=== PATIENT | female | born 1995 | race African-American/Black ===

== ENCOUNTER 2018-06-16 21:35 | Inpatient (IN) | payer OTHER ==
[2018-06-16] MEDS ORDERED: DEXTROSE 5%-LACTATED RINGERS 1,000 ML IV SCH (23:15)
[2018-06-16] MEDS ORDERED: AMPICILLIN - 2 GM in SODIUM CHLORIDE 100 ML IVPB ONE (23:30)
[2018-06-16] MEDS ORDERED: AMPICILLIN SODIUM 2 GM VIAL ONE (23:34)
[2018-06-17 00:29] LABS: BASO % 0.4 % (0-2.0); EOS % 0.6 % (0-4.5); HEMOGLOBIN 11.3 GM/dL (10.7-15.3); LYMPH % 18.8 % (8-40); MCH 28.9 pg (25.7-33.7); MCHC 34.1 g/dl (32.0-36.0); MEAN CELL VOLUME 84.7 fl (80-96); MEAN PLT VOLUME 8.1 fl (7.5-11.1); MONO % 6.8 % (3.8-10.2); NEUT % 73.4 % (42.8-82.8); PLATELET COUNT 404 K/MM3 (134-434); RDW 13.8 % (11.6-15.6)
[2018-06-17 00:41] LABS: INR 0.92 (0.83-1.09); PROTHROMBIN TIME (PATIENT) 10.9 SEC (9.7-13.0)
[2018-06-17 00:43] LABS: ACTIVATED PTT 24.8 SECONDS (25.2-36.5)
[2018-06-17 00:48] VITALS: BMI 26.4
[2018-06-17 00:56] LABS: ANION GAP 10 MMOL/L (8-16); BLOOD UREA NITROGEN 8 mg/dL (7-18); CALCIUM 8.5 mg/dL (8.5-10.1); CHLORIDE 108 mmol/L (98-107); CO2 22 mmol/L (21-32); CREATININE 0.7 mg/dL (0.55-1.3); GLUCOSE,RANDOM 109 mg/dL (74-106); SODIUM 140 mmol/L (136-145)
[2018-06-17 01:30] LABS: URINE APPEARANCE SLCLOUDY; URINE BILIRUBIN NEGATIVE (<2.0 mg/dL); URINE COLOR LTYELLOW; URINE GLUCOSE (UA) 1+ (NEGATIVE); URINE KETONE NEGATIVE (NEGATIVE); URINE LEUK ESTERASE 3+ (NEGATIVE); URINE NITRITE NEGATIVE (NEGATIVE); URINE PROTEIN NEGATIVE (NEGATIVE); URINE UROBILINOGEN NEGATIVE mg/dL (0.2-1.0)
[2018-06-17] MEDS ORDERED: ELECTROLYTE-148 SOLN 500 ML IV ONE (01:30)
[2018-06-17] MEDS ORDERED: CITRIC ACID/SODIUM CITRATE 30 ML UNIT-DOSE CUP PO ONE (01:45)
[2018-06-17] MEDS ORDERED: FENTANYL/BUPIVACAINE/NS/PF - PCEA - 50 ML DISP.SYRIN EP ONE ×3 (01:51→09:39)
[2018-06-17 02:09] LABS: COCAINE, UR NEGATIVE ng/ml (CUTOFF=300); METHADONE, UR NEGATIVE ng/ml (CUTOFF=300); OPIATES, URI NEGATIVE ng/ml (CUTOFF=300); PHENCYCLIDINE,URINE NEGATIVE ng/ml (CUTOFF=25); URINE AMPHETAMINES NEGATIVE ng/ml (CUTOFF=500); URINE BARBITURATES NEGATIVE ng/ml (CUTOFF=200); URINE BENZODIAZEPINES NEGATIVE ng/ml (CUTOFF=200)
[2018-06-17 02:23] LABS: EPI CELLS MODERATE /HPF (FEW); URINE BACTERIA RARE /hpf (NONE SEEN); URINE MUCUS RARE
[2018-06-17] MEDS ORDERED: NALOXONE HCL 0.4 MG/ML VIAL IVPUSH PRN (03:04)
[2018-06-17] MEDS ORDERED: FENTANYL/BUPIVACAINE/NS/PF - PCEA - 50 ML DISP.SYRIN EP SCH ×2 (03:15→03:40)
[2018-06-17] MEDS: ELECTROLYTE-148 SOLN 1,000 ML IV SCH ×2 (03:15→05:50)
[2018-06-17] MEDS: AMPICILLIN - 1 GM in SODIUM CHLORIDE 100 ML IVPB SCH ×2 (03:23→07:30)
[2018-06-17] MEDS ORDERED: AMPICILLIN SODIUM 1 GM VIAL ONE ×2 (03:52→07:23)
--- NOTE | 2018-06-17 07:24 | HP ---
Past Medical History - Admission Chief Complaint: Uterine contractions History of Present Illness: 22yo @ 39+wks here with uterine contractions. When initially presented she was 75/3/-3, after ambulating for 1-2 hours, she was re-examined adn noted to be 4-5cm dilated. No VB. No LOF. +FM Received PNC at [facility], but states she never wanted to deliver there and always intended to deliver at [facility] History Source: Patient - Past Medical History Pulmonary: Yes: Asthma ...: 2 ...Para: 1 ...Term: 1 ...: 0 ...Spon : 0 ...Induced : 0 ...Multiple Gestation: 0 ... Weeks Gestation by Dates: 39.5 ...EDC by Sono: 06/19/18 Infectious Disease: Yes: STD's (hx hsv 1 no recent out break) - Past Surgical History Hx Myomectomy: No Hx Transabdominal Cerclage: No - Smoking History Smoking history: Never smoked Have you smoked in the past 12 months: No - Alcohol/Substance Use Hx Alcohol Use: No - Social History Usual Living Arrangement: Yes: Alone History of Recent Travel: No Home Medications - Allergies Allergies/Adverse Reactions: Allergies Allergy/AdvReac Type Severity Reaction Status Date / Time No Known Allergies Allergy Verified 02/09/15 04:11 - Home Medications Home Medications: Ambulatory Orders Iron 150 mg PO BID 02/09/15 Vit/Iron Fumarate/FA [ Tablet] 1 each PO DAILY 02/09/15 Physical Exam - Maternity Vital Signs: Vital Signs Temperature 97.2 F L 06/17/18 07:00 Pulse Rate 70 06/17/18 06:20 Respiratory Rate 20 06/17/18 06:20 Blood Pressure 98/65 06/17/18 06:20 O2 Sat by Pulse Oximetry (%) 100 06/17/18 06:20 - Abdominal Exam/OB Number of Fetuses: Single Presentation: Vertex Contractions: Yes Regularity: Irregular Intensity: Mild Monitor Mode: External Category: I Accelerations: Uniform Decelerations: Variable - Vaginal Exam/OB Dilatation (cm): 4-5 Effacement (%): 75 Amniotic Membrane Status: Intact - Labs Lab Results: CBC, BMP 06/16/18 23:59 12/12/18 23:59 Assessment/Plan 22yo @ 39.5wks here in early labor Admit IVF, Epidural Given Amp for GBS unknown Cat I tracing Anticipate FRANSISCO Ramirez MD
--- NOTE | 2018-06-17 07:25 | PN ---
Progress Note, Labor Vaginal Exam #1 Labor Exam Date: 06/17/18 Labor Exam Time: 07:24 Heart Rate (range): Cat I Dilatation: 5 Effacement (%): 100 Amniotic Membrane Status: Ruptured Presentation: Vertex/Position Station: -3 Remarks: Pt comfortable No progress overnight Will start pitocin augmentation Anticipate Pricila Ramirez MD
[2018-06-17] MEDS ORDERED: OXYTOCIN 30 UNITS in 0.9% NS 30 UNIT/500 ML INFUS.BAG IVPB SCH (07:30)
--- NOTE | 2018-06-17 09:55 | PN ---
Progress Note (short form) - Note Progress Note: 22 yrs , EDC 06/19/18 --39.4/[address] Ramirez on 06/16/18 at 11.15 pm i labor PNC at [facility] clinic , chart not available .L&D at [facility] does not have chart & clinic no response . Pt states her course was uneventful. Intrapartum labor course reviewed. onset LP 06/16/18 -8.30 PM 06/17/18 :- 2.25 AM epidural given 7.15 AM SROM , clear along with bloody show FHR tracing earlier , intermittently cat-2 , variable decels mid, moderate or severe noted UC q3-4 min 9.00AM 5-6 cm, irregularly effaced vx -1 station , ? LOP position 9.25 AM scalp electrode applied left lateral position favorable Selected Entries 06/17/18 09:30 Pulse Rate 70 Respiratory 17 Rate Blood Pressure 111/76 O2 Sat by Pulse 100 Oximetry (%) Laboratory Tests 06/16/18 06/16/18 06/16/18 23:59 23:59 23:59 WBC 9.0 Hgb 11.3 Hct 33.0 Plt Count 404 D PT with INR 10.90 INR 0.92 PTT (Actin FS) 24.8 L Sodium Potassium Chloride Carbon Dioxide BUN Creatinine Random Glucose Urine Protein Opiates Screen Methadone Screen Barbiturate Screen Phencyclidine Screen Ur Amphetamines Screen MDMA (Ecstasy) Screen Benzodiazepines Screen Cocaine Screen U Marijuana (THC) Screen RPR Titer HIV 1&2 Antibody Screen HIV P24 Antigen Blood Type B POSITIVE Antibody Screen Negative 06/16/18 06/16/18 06/16/18 23:59 23:59 23:59 WBC Hgb Hct Plt Count PT with INR INR PTT (Actin FS) Sodium 140 Potassium 4.0 Chloride 108 H Carbon Dioxide 22 BUN 8 Creatinine 0.7 Random Glucose 109 H Urine Protein Opiates Screen Methadone Screen Barbiturate Screen Phencyclidine Screen Ur Amphetamines Screen MDMA (Ecstasy) Screen Benzodiazepines Screen Cocaine Screen U Marijuana (THC) Screen RPR Titer Nonreactive HIV 1&2 Antibody Screen Negative HIV P24 Antigen Negative Blood Type Antibody Screen 06/17/18 06/17/18 01:14 01:14 WBC Hgb Hct Plt Count PT with INR INR PTT (Actin FS) Sodium Potassium Chloride Carbon Dioxide BUN Creatinine Random Glucose Urine Protein Negative Opiates Screen Negative Methadone Screen Negative Barbiturate Screen Negative Phencyclidine Screen Negative Ur Amphetamines Screen Negative MDMA (Ecstasy) Screen Negative Benzodiazepines Screen Negative Cocaine Screen Negative U Marijuana (THC) Screen Negative RPR Titer HIV 1&2 Antibody Screen HIV P24 Antigen Blood Type Antibody Screen 10.15 AM :FHR tracing cat -1 pitocin augmentation started 1 ml/hr 10.31 AM Ant lip , vx +1/+2 station FHR cat-2 , small variable 10. 40 AM fhr 60 bpm for 3 min gradulally fhr came up to 125 bpm Cx fully dilated , statio +2/+3 pt encouraged to push upper cutter out notified
[2018-06-17] MEDS ORDERED: TUBERCULIN PPD 5 TU/0.1ML SYRINGE (IN PATIENT USE ONLY) ID ONE (10:00)
[2018-06-17] MEDS ORDERED: OXYTOCIN 30 UNITS in 0.9% NS 30 UNIT/500 ML INFUS.BAG IVPB ONE (10:11)
[2018-06-17] MEDS ORDERED: OXYTOCIN 20 UNITS in 0.9% NS 20 UNIT/1,000 ML INFUS.BAG IV ONE (10:37)
[2018-06-17] MEDS ORDERED: LIDOCAINE HCL 1% PRESERVATIVE FREE - 30ML VIAL ONE (10:38)
[2018-06-17] MEDS ORDERED: BISACODYL 10 MG SUPP.RECT RC PRN (11:15)
[2018-06-17] MEDS ORDERED: METHYLERGONOVINE MALEATE 0.2 MG/1 ML AMP IM PRN (11:15)
[2018-06-17] MEDS ORDERED: OXYTOCIN 20 UNITS in 0.9% NS 20 UNIT/1,000 ML INFUS.BAG IV SCH (11:15)
[2018-06-17] MEDS ORDERED: BENZOCAINE 28 GM HEMORRHOIDAL OINTMENT TP PRN (11:15)
[2018-06-17] MEDS ORDERED: BENZOCAINE 20% 57 GM BOTTLE TP PRN (11:15)
[2018-06-17] MEDS ORDERED: WITCH HAZEL 50% (TUCKS) 40 PAD/JAR PAD TP PRN (11:15)
[2018-06-17] MEDS ORDERED: oxyCODONE HCL 5 MG TABLET PO PRN (11:15)
--- NOTE | 2018-06-17 11:24 | PN ---
Delivery - Delivery Vaginal Delivery: No Problems, Spontaneous (baby vx presentation , delievered in MAEVE position, immediate nasal & oral suction was done at perineum, cord around neck loose, untangled before the delivery of shoulder. cord around body also was noted . placenta removed copletely with membranes. perineum & vagina was intact) Type of Anesthesia: Epidural EBL (cc): 300 Delivery, Single - Stages of Labor Date 1st Stage Initiatied: 06/16/18 Time 1st Stage Initiated: 20:30 Date 2nd Stage Initiated: 06/17/18 Time 2nd Stage Initiated: 10:31 Date of Delivery: 06/17/18 Time of Delivery: 10:53 Date Placenta Delivered: 06/17/18 Time Placenta Delivered: 11:00 Placenta: Yes: Spontaneous, Uterine Exploration - Condition of Carpet Repairer/Motors Assembler Present: Yes Name: Devante Yepez Gender: Female Weight: 5 lb 10 oz Position: Right, OA (cord around neck & body loose) Total Hours ROM (Hrs/Mins): 3hrs-45 min - 1 Minute Total Score: 9 5 Minutes Total Score: 9 - [place] Feeding Plan Initial Plan: Elected not to breastfeed exclusively throughout hospitalization Remarks - Remarks Remarks: 22 yrs , 39.[address] Ramirez on 06/16/18 . [facility] intrapartum course uneventful except intermittent cat-2 tracing . she received 3 doses of IV Ampicillin due to unknown GBS pt stable
[2018-06-17 11:31] LABS: ARTERIAL BLD GAS O2 SATURATION 11.6 % (90-98.9); ARTERIAL BLOOD GAS BASE EXCESS -4.6 meq/l (-2-2); ARTERIAL BLOOD GAS pH 7.17 (7.35-7.45)
[2018-06-17 11:40] LABS: VENOUS PC02 53.1 mmHg (38-52); VENOUS PH 7.27 (7.32-7.42); VENOUS PO2 28.1 mmHg (28-48)
[2018-06-17] MEDS: FERROUS SO4 325 MG TABLET (FP) PO SCH (16:36)
[2018-06-17] MEDS: ACETAMINOPHEN 325 MG TABLET (FP) PO PRN (16:55)
[2018-06-17] MEDS: IBUPROFEN 600 MG TABLET (FP) PO PRN (16:55)
[2018-06-18 02:15] LABS: HBsAG SCREEN Negative (Negative)
[2018-06-18 06:17] LABS: BASO % 0.6 % (0-2.0); EOS % 0.9 % (0-4.5); HEMATOCRIT 32.7 % (32.4-45.2); HEMOGLOBIN 10.5 GM/dL (10.7-15.3); LYMPH % 20.7 % (8-40); MCH 27.6 pg (25.7-33.7); MCHC 32.2 g/dl (32.0-36.0); MEAN CELL VOLUME 85.9 fl (80-96); MEAN PLT VOLUME 8.1 fl (7.5-11.1); MONO % 6.3 % (3.8-10.2); NEUT % 71.5 % (42.8-82.8); PLATELET COUNT 296 K/MM3 (134-434); RDW 13.9 % (11.6-15.6); WHITE BLOOD COUNT 10.1 K/mm3 (4.0-10.0)
[2018-06-18 07:23] LABS: RUBELLA IgG ANTIBODY < 0.90 index (Immune >0.99)
[2018-06-18] MEDS: FERROUS SO4 325 MG TABLET (FP) PO SCH ×2 (08:07→16:53)
--- NOTE | 2018-06-18 08:13 | PN ---
Progress Note (short form) - Note Progress Note: ppd 1 doing well, no c/o , no excess vaginal bleeding CBC, BMP 06/18/18 05:45 06/16/18 23:59 Last Vital Signs Temp Pulse Resp BP Pulse Ox 97.8 F 72 18 109/74 100 06/18/18 06:00 06/18/18 06:00 06/18/18 06:00 06/18/18 06:00 06/17/18 11:45 abdomen soft, no distension , no cva uterus firm lochia mild no calf tenderness plan ambualte, observation plan for d/c home in am
[2018-06-18] MEDS: PRENATAL VITAMINS W/ FOLIC ACID TABLET (FP) PO SCH (09:28)
[2018-06-18] MEDS: IBUPROFEN 600 MG TABLET (FP) PO PRN (16:52)
[2018-06-18] MEDS: ACETAMINOPHEN 325 MG TABLET (FP) PO PRN (16:53)
[2018-06-18] MEDS ORDERED: SENNOSIDES/DOCUSATE COMBO (SENNA PLUS) TABLET (UD) PO PRN (22:00)
--- NOTE | 2018-06-19 07:02 | DS ---
Physical Exam-CASHIER ASSOCIATE Vital Signs: Vital Signs Temperature 98.6 F 06/18/18 22:00 Pulse Rate 75 06/18/18 22:00 Respiratory Rate 18 06/18/18 22:00 Blood Pressure 118/63 06/18/18 22:00 O2 Sat by Pulse Oximetry (%) 100 06/17/18 11:45 Constitutional: Yes: Well Nourished Eyes: Yes: WNL HENT: Yes: WNL, Normocephalic Neck: Yes: WNL Cardiovascular: Yes: WNL, Regular Rate and Rhythm, S4 Respiratory: Yes: CTA Bilaterally Gastrointestinal: Yes: WNL, Normal Bowel Sounds ...Rectal Exam: Yes: WNL Renal/: Yes: WNL ....Post : Yes: Uterus firm, Uterus non-tender, Slight lochia rubra ( perineum intact) Breast(s): Yes: WNL (not engorged) Musculoskeletal: Yes: WNL Extremities: Yes: WNL. No: Calf Tenderness Edema: Yes Edema: LLE: 1+, RLE: 1+ Integumentary: Yes: Body Piercing, Tattoos Neurological: Yes: WNL ...Motor Strength: WNL Psychiatric: Yes: WNL, Alert, Oriented Labs: CBC, BMP 06/18/18 05:45 06/16/18 23:59 Delivery - Delivery Vaginal Delivery: No Problems, Spontaneous (baby vx presentation , delievered in MAEVE position, immediate nasal & oral suction was done at perineum, cord around neck loose, untangled before the delivery of shoulder. cord around body also was noted . placenta removed copletely with membranes. perineum & vagina was intact) Type of Anesthesia: Epidural Episiotomy/Laceration: None EBL (cc): 300 Delivery, Single - Stages of Labor Date 1st Stage Initiatied: 06/16/18 Time 1st Stage Initiated: 20:30 Date 2nd Stage Initiated: 06/17/18 Time 2nd Stage Initiated: 10:31 Date of Delivery: 06/17/18 Time of Delivery: 10:53 Time Placenta Delivered: 11:00 Placenta: Yes: Spontaneous, Uterine Exploration - Condition of Infant Company Secretary/Windows Security Engineer Present: Yes Name: Devante Yepez Gender: Female Weight: 5 lb 10 oz Position: Right, OA (cord around neck & body loose) Total Hours ROM (Hrs/Mins): 3hrs-45 min - 1 Minute Total Score: 9 5 Minutes Total Score: 9 - Feeding Plan Initial Plan: Elected not to breastfeed exclusively throughout hospitalization Remarks - Remarks Remarks: 22 yrs , [address] Ramirez on 06/16/18 . pt [facility] drop in [facility] intrapartum course uneventful except intermittent cat-2 tracing . she received 3 doses of IV Ampicillin due to unknown GBS pt stable pp course unstable discharge today Discharge Summary Reason For Visit: LABOR Current Active Problems Normal spontaneous vaginal delivery (Acute) with 39 completed weeks gestation (Acute) with care elsewhere (Acute) Condition: Stable - Instructions Diet, Activity, Other Instructions: Post Instructions DIET: Continue good diet high in protein, calcium, and iron rich foods. Drink at least eight (8) glasses of water daily in addition to other fluids. ___ Regular diet MEDICATIONS: Continue vitamins and iron as previously directed. Motrin and Tylenol may be taken for minor discomfort. ACTIVITY: Mild to moderate exercise may be started in two (2) weeks. Take frequent rest periods. Resume normal activity after six (6) week check up. WOUND CARE OF OPERATIVE SITE: Continue use of perineal bottle until vaginal discharge stops. Keep area clean. Shower daily. Keep abdominal wound dry. Report any drainage or redness to physician. Tub baths, tampons and douches are not permitted for [address] Breast feeding & or Bottle feeding BREAST CARE: (For those that are not breast feeding): If engorgement occurs: Wear tight fitting bra. Take Tylenol or Motrin for pain. Apply cold packs (ice in bags to each breast ) FAMILY PLANNING: There are many control alternatives to pursue and they should be discussed at your first office visit. You may resume sexual activity after your six (6) week check up. (Remember, breast feeding is not a contraceptive) NEXT PHYSICIAN APPOINTMENT: Be certain to call for a six (6) week appointment, unless otherwise directed. Call Clinic or got to Emergency Dept if you have any of the following: Heavy vaginal bleeding Painful urination Leg pain Unusual odor noted to vaginal bleeding High fever Red streaking noted on breast Referrals: Hoa Shah MD [Staff Physician] - Disposition: HOME - Home Medications Comprehensive Discharge Medication List: Ambulatory Orders Iron 325 mg PO DAILY 02/09/15 Acetaminophen [Tylenol .Regular Strength -] 650 mg PO Q3H PRN tablet 06/18/18 Ferrous Sulfate [Feosol] 325 mg PO DAILY #30 tab 06/18/18 Ibuprofen [Motrin -] 200 mg PO Q4H PRN tablet 06/18/18 Vitamins (Sjr) - 1 tab PO DAILY #30 tablet 06/18/18
[2018-06-19] MEDS: ACETAMINOPHEN 325 MG TABLET (FP) PO PRN (07:29)
[2018-06-19] MEDS: FERROUS SO4 325 MG TABLET (FP) PO SCH (07:29)
[2018-06-19] MEDS: IBUPROFEN 600 MG TABLET (FP) PO PRN (07:31)
[2018-06-19] MEDS: PRENATAL VITAMINS W/ FOLIC ACID TABLET (FP) PO SCH (10:56)
[2018-06-19 11:43] VITALS: BP 112/68; PULSE 74; TEMP 98.3
== END 2018-06-19 14:39 | disposition home or self-care (01) | DRG 560 ==
LOC: JDEL 21:35 → JLDR 23:15 → J3W 06-17 14:20
PROVIDERS: ADMIT Obstetrics & Gynecology; ATTEND Obstetrics & Gynecology
PROC: 10E0XZZ Delivery of Products of Conception, External Approach (ICD-10-PCS; principal; 2018-06-17)
DX: O69.81X0 Labor and delivery complicated by cord around neck, without compression, not applicable or unspecified (principal); Z3A.39 39 weeks gestation of pregnancy; Z37.0 Single live birth
CPT/HCPCS: 36415; 36600; 59409; 80048; 80307; 81003; 81015; 82803; 85025; 85610; 85730; 86593; 86762; 86850; 86900; 86901; 87340; 87389

== ENCOUNTER 2020-03-04 11:48 | Emergency (ER) | payer OTHER ==
[2020-03-04 11:53] VITALS: TEMP 97; BMI 25.4
[2020-03-04 13:05] VITALS: BP 120/83; PULSE 76
[2020-03-04] MEDS ORDERED: FAMOTIDINE 20 MG/50 ML IVPB 20 MG/50 ML MG IVPB ONE ×2 (13:18→13:25)
[2020-03-04] MEDS ORDERED: ONDANSETRON 4 MG/2 ML VIAL IVPUSH ONE (13:18)
[2020-03-04] MEDS ORDERED: ACETAMINOPHEN 1000 MG/100 ML VIAL (NON FORMULARY) IVPB ONE (13:19)
[2020-03-04] MEDS ORDERED: SODIUM CHLORIDE 1,000 ML IV STA (13:23)
--- NOTE | 2020-03-04 13:23 | PDOC ---
History of Present Illness - General Chief Complaint: Pain Stated Complaint: ABD. PAIN Time Seen by Provider: 03/04/20 12:30 - History of Present Illness Initial Comments: HPI 24 yo F with no significant PMH presenting with periumbilical abdominal pain since 4 AM. Pt reports the pain started suddenly and awoke her from sleep. Pain initially 10/10, now 8/10; with radiation towards chest "but not reaching the chest." Pain is intermittent occurring about every 5 minutes lasting for about 15-30 seconds; alternates between sharp and cramping in quality. Worse with lying down. Improved with sitting and standing. Pt reports pain was briefly alleviated by a warm bath; also tried peptobismol with no improvement. Pain has been associated with diarrhea x 6 episodes (watery, non-bloody), nausea, nb nb emesis x 2 episodes (light pink/clear), tenesmus, and dizziness upon standing. Denies recent fevers, chills, constipation, urinary changes, chest pain, shortness of breath, weakness, sore threat, myalgias, or headache. Pt hasn't been able to tolerate PO since pain started. Of note, pt reports having Anand lewis last night at 12 AM/1AM. Pt also reports no current sick contacts but does reports attending a democrat with about 20 people two weeks ago. PMHX: as in HPI PSHX: as in HPI ObGyn: ; both vaginal deliveries without complications; no periods for last year d/t depo-provera shot for control Denies hx of any recruiter manager abnormalities Meds: no daily medications; receives depo-provera shot for control Allergies: denies Social Hx Tob: denies Etoh: socially Rec drugs: denies Sexual Hx - sexually active with father of her children; intermittently use protection; no history of STIs PCP: Dr. Neymar BUCKLEY GENERAL/CONSTITUTIONAL: No fever or chills. No weakness. + dizziness upon standing HEAD, EYES, EARS, NOSE AND THROAT: No change in vision. No ear pain or discharge. No sore throat. CARDIOVASCULAR: No chest pain or shortness of breath RESPIRATORY: No cough, wheezing, or hemoptysis. GASTROINTESTINAL: No constipation. + nausea/vomiting/diarrhea/tenesmus GENITOURINARY: No dysuria, frequency, or change in urination. MUSCULOSKELETAL: No joint or muscle swelling or pain. No neck or back pain. SKIN: No rash NEUROLOGIC: No headache, vertigo, loss of consciousness, or change in strength/sensation. ENDOCRINE: No increased thirst. No abnormal weight change HEMATOLOGIC/LYMPHATIC: No anemia, easy bleeding, or history of blood clots. ALLERGIC/IMMUNOLOGIC: No hives or skin allergy. PE VS - orthostatic vitals positive (126/75 sitting; 105/71 standing) GENERAL: Awake, alert, and fully oriented, in no acute distress; in mild discomfort HEAD: No signs of trauma, normocephalic, atraumatic EYES: PERRLA, EOMI, sclera anicteric, conjunctiva clear ENT: Auricles normal inspection, hearing grossly normal, nares patent, oropharynx clear without exudates. Dry mucous membranes. NECK: Normal ROM, supple, no lymphadenopathy LUNGS: No distress, speaks full sentences, clear to auscultation bilaterally HEART: Regular rate and rhythm, normal S1 and S2, no murmurs, rubs or gallops, peripheral pulses normal and equal bilaterally. ABDOMEN: Soft, non-distended, minimal to mild tenderness in periumbilical area; normoactive bowel sounds. No guarding, no rebound. No masses. EXTREMITIES : Normal inspection, Normal range of motion, no edema. No clubbing or cyanosis. NEUROLOGICAL: Normal speech, normal gait, no focal sensorimotor deficits SKIN: Warm, Dry, normal turgor, no rashes or lesions noted 03/04/20 13:29 Past History - Medical History Allergies/Adverse Reactions: Allergies Allergy/AdvReac Type Severity Reaction Status Date / Time No Known Allergies Allergy Verified 03/04/20 11:52 Home Medications: Ambulatory Orders Iron 325 mg PO DAILY 02/09/15 Acetaminophen [Tylenol .Regular Strength -] 650 mg PO Q3H PRN tablet 06/18/18 Ferrous Sulfate [Feosol] 325 mg PO DAILY #30 tab 06/18/18 Ibuprofen [Motrin -] 200 mg PO Q4H PRN tablet 06/18/18 Vitamins (Sjr) - 1 tab PO DAILY #30 tablet 06/18/18 Ondansetron [Zofran -] 4 mg PO BID PRN #10 tablet 03/04/20 Asthma: No Cancer: No Cardiac Disorders: No COPD: No Diabetes: No HTN: No Seizures: No Thyroid Disease: No - Reproductive History Is Patient Now?: (patient is unsure) Therapeutic (s) & number: No Tubal Ligation: No - Psycho-Social/Smoking History Smoking History: Never smoked Have you smoked in the past 12 months: No Information on smoking cessation initiated: No - Substance Abuse Hx (Audit-C & DAST Scrn) How often the patient has a drink containing alcohol: Never Score: In Men: 4 or > Positive; In Women: 3 or > Positive: 0 Screen Result (Pos requires Nsg. Audit-10AR): Negative *Physical Exam - Vital Signs Last Vital Signs Temp Pulse Resp BP Pulse Ox 97 F L 76 20 120/83 100 03/04/20 11:50 03/04/20 11:52 03/04/20 11:52 03/04/20 11:52 03/04/20 11:52 ED Treatment Course - LABORATORY CBC & Chemistry Diagram: 03/04/20 13:45 03/04/20 13:45 Medical Decision Making - Medical Decision Making MDM 24 yo F with no significant PMH presenting with intermittent periumbilical abdominal pain with associated diarrhea, nausea, and vomiting. DDX including but not limited to: likely gastritis vs gastroenteritis; will r/o pancreatitis, metabolic abnormalities, and COVID W/U: -CBC, CMP, lipase, serum test TX: -IV tylenol, zofran, and pepcid -1 L NS bolus -Will continue to monitor and reassess after labs, medications administered 03/04/20 14:12 Labs only with WBC 11.6 Pt clinically improved. Will plan to discharge. 03/04/20 14:49 Patient stable for discharge. Informed of all lab and imaging results. Given follow up instructions and strict return precautions. Patient expressed understanding and agree to plan. 03/04/20 17:08 Discharge - Discharge Information Problems reviewed: Yes Clinical Impression/Diagnosis: Periumbilical abdominal pain, Vomiting, Diarrhea Condition: Improved Disposition: HOME - Additional Discharge Information Prescriptions: Ondansetron [Zofran -] 4 mg PO BID PRN #10 tablet PRN Reason: Nausea And/Or Vomiting - Follow up/Referral - Patient Discharge Instructions Patient Printed Discharge Instructions: DI for Viral Gastroenteritis -- Adult, DI for Gastritis Additional Instructions: You were seen in the ED and evaluated for abdominal pain with nausea, vomiting, and diarrhea. You were given Tylenol (for pain), Pepcid (for possible gastrit is), Zofran (for nausea), and IV fluids. Your symptoms have subsided since these medications were given. Your results of your labs included a mild elevation in you white blood cells. There does not appear to be an acute need for immediate hospitalization. You are advised to follow up with your Primary Care Physician within 1 week. You were given a prescription for Zofran odt for nausea. Please return to the ED if you have significant worsening of abdominal pain, vomiting, or diarrhea OR the development of persistent fevers and inability to tolerate any food/liquids by mouth. - Post Discharge Activity
[2020-03-04] MEDS ORDERED: ACETAMINOPHEN INJECTION 100 ML IVPB ONE (13:25)
--- NOTE | 2020-03-04 13:58 | PDOC ---
Documentation entered by Vinayak Donahue SCRIBE, acting as scribe for Christ Rodriguez MD. Christ Rodriguez MD: This documentation has been prepared by the rheaibeGodfrey Angel, SCRIBE, under my direction and personally reviewed by me in its entirety. I confirm that the documentation accurately reflects all work, treatment, procedures, and medical decision making performed by me. Attending Attestation - Resident Resident Name: KrystenJasiel - ED Attending Attestation I have performed the following: I have examined & evaluated the patient, The case was reviewed & discussed with the resident, I agree w/resident's findings & plan, Exceptions are as noted - HPI HPI: 03/04/20 13:55 24y F no pmhx presents with complaint of intermitent epigastric/periumbilical discomfort that is sharp innature - started approximately 4am - pt was at a green party last night, had pizza approx 1am, got home around 3 feeling fine, around 4am, she started having abd discomfort, went to sleep and woke up around 8 with sypmptoms again. pt endorses 4-5 episodes of non bloody/watery stool as well as a few episodes of nbnb vomiting. pt denies any fever/chills, cp, sob, bpr, melena, cough, headache, dizzines,s palpitations, no prior abd surgeries. occasional etoh (last use 2 weeks ago) denies any smoking, recreational drug use - Physicial Exam PE: 03/04/20 13:57 GENERAL: The patient is awake, alert, and fully oriented, Nontoxic - in no acute distress. HEAD: Normocephalic, atraumatic. EYES: extraocular movements intact, sclera anicteric, conjunctiva clear. ENT: Normal voice, Moist mucous membranes. NECK: Normal range of motion, supple LUNGS: Breath sounds equal, clear to auscultation bilaterally. No wheezes, no rhonchi, no rales. HEART: Regular rate and rhythm, normal S1 and S2 without murmur, rub or gallop. ABDOMEN: Soft, nontender, No guarding, no rebound. No CVA tenderness EXTREMITIES: Normal range of motion, no edema. NEUROLOGICAL: No facial assymetry, Normal speech, PSYCH: Normal mood, normal affect. SKIN: Warm, Dry, normal turgor, - Medical Decision Making 03/04/20 13:57 Suspect likely gastritis versus gastroenteritis Will treat supportively, fluids, Pepcid, Zofran Will obtain blood work to rule out anemia, metabolic derangements, pancreatitis 03/04/20 15:15 labs reviewd unremarkable pt feeling improved will dc with supportive care at home return precutions wre discussed Discharge - Discharge Information Problems reviewed: Yes Clinical Impression/Diagnosis: Periumbilical abdominal pain Vomiting Qualifiers: Vomiting type: unspecified Vomiting Intractability: non-intractable Nausea presence: with nausea Qualified Code(s): R11.2 - Nausea with vomiting, unspecified Diarrhea Qualifiers: Diarrhea type: presumed infectious Qualified Code(s): R19.7 - Diarrhea, unspecified Condition: Improved Disposition: HOME - Admission No - Additional Discharge Information Prescriptions: Ondansetron [Zofran -] 4 mg PO BID PRN #10 tablet PRN Reason: Nausea And/Or Vomiting - Follow up/Referral - Patient Discharge Instructions Patient Printed Discharge Instructions: DI for Viral Gastroenteritis -- Adult, DI for Gastritis Additional Instructions: You were seen in the ED and evaluated for abdominal pain with nausea, vomiting, and diarrhea. You were given Tylenol (for pain), Pepcid (for possible gastritis), Zofran (for nausea), and IV fluids. Your symptoms have subsided since these medications were given. Your results of your labs included a mild elevation in you white blood cells. There does not appear to be an acute need for immediate hospitalization. You are advised to follow up with your Primary Care Physician within 1 week. You were given a prescription for Zofran odt for nausea. Please return to the ED if you have significant worsening of abdominal pain, vomiting, or diarrhea OR the development of persistent fevers and inability to tolerate any food/liquids by mouth. - Post Discharge Activity
[2020-03-04 14:18] LABS: HEMATOCRIT 42.9 % (32.4-45.2); HEMOGLOBIN 14.3 GM/dL (10.7-15.3); MCH 30.7 pg (25.7-33.7); MCHC 33.3 g/dl (32.0-36.0); MEAN CELL VOLUME 92.2 fl (80-96); MEAN PLT VOLUME 8.3 fl (7.5-11.1); PLATELET COUNT 416 K/MM3 (134-434); RBC 4.65 M/mm3 (3.60-5.2); RDW 12.6 % (11.6-15.6); WHITE BLOOD COUNT 11.6 K/mm3 (4.0-10.0)
[2020-03-04 14:37] LABS: ALBUMIN 3.9 g/dl (3.4-5.0); BILIRUBIN,TOTAL 0.6 mg/dL (0.2-1); CALCIUM 9.7 mg/dL (8.5-10.1); CREATININE 0.8 mg/dL (0.55-1.3); POTASSIUM 4.8 mmol/L (3.5-5.1); TOT PROT 7.6 g/dl (6.4-8.2)
== END 2020-03-04 15:39 | disposition home or self-care (01) ==
LOC: JER 11:48
PROC: 3E0333Z Introduction of Anti-inflammatory into Peripheral Vein, Percutaneous Approach (ICD-10-PCS; principal; 2020-03-04)
PROC: 3E033GC Introduction of Other Therapeutic Substance into Peripheral Vein, Percutaneous Approach (ICD-10-PCS; 2020-03-04)
PROC: 3E0337Z Introduction of Electrolytic and Water Balance Substance into Peripheral Vein, Percutaneous Approach (ICD-10-PCS; 2020-03-04)
DX: R10.33 Periumbilical pain (principal); R19.7 Diarrhea, unspecified; R11.10 Vomiting, unspecified
CPT/HCPCS: 36415; 80053; 83690; 84703; 85027; 96361; 96374; 96375; 99284-25; J0131; U0003

== ENCOUNTER 2020-06-05 00:39 | Emergency (ER) | payer OTHER ==
[2020-06-05 00:56] VITALS: BP 107/65; PULSE 94; TEMP 99.1; BMI 26.4
[2020-06-05] MEDS ORDERED: IBUPROFEN 600 MG TABLET (FP) PO ONE ×3 (01:15→02:30)
[2020-06-05] MEDS ORDERED: IBUPROFEN 400 MG TABLET (FP) PO ONE ×2 (02:14→02:30)
[2020-06-05] MEDS ORDERED: IBUPROFEN 100 MG/5 ML UNIT DOSE CUPS PO ONE ×2 (02:30)
== END 2020-06-05 02:44 | disposition home or self-care (01) ==
LOC: JER 00:39
DX: S92.334A Nondisplaced fracture of third metatarsal bone, right foot, initial encounter for closed fracture (principal)
CPT/HCPCS: 73610-TC-RT-FY; 73630-TC-RT-FY; 99284-25

== ENCOUNTER 2020-09-30 14:16 | Emergency (ER) | payer OTHER ==
[2020-09-30 14:34] VITALS: BP 111/65; PULSE 93; TEMP 98; BMI 30.2
[2020-09-30] MEDS ORDERED: SODIUM CHLORIDE 0.9% 500 ML INFUS.BAG IV ONE (15:02)
[2020-09-30 16:25] LABS: BASO % 0.7 % (0-2.0); EOS % 0.8 % (0-4.5); HEMATOCRIT 39.6 % (32.4-45.2); HEMOGLOBIN 13.3 GM/dL (10.7-15.3); LYMPH % 33.8 % (8-40); MCH 31.6 pg (25.7-33.7); MCHC 33.7 g/dl (32.0-36.0); MEAN CELL VOLUME 93.7 fl (80-96); MEAN PLT VOLUME 7.8 fl (7.5-11.1); MONO % 10.1 % (3.8-10.2); NEUT % 54.6 % (42.8-82.8); PLATELET COUNT 414 K/MM3 (134-434); RBC 4.23 M/mm3 (3.60-5.2); RDW 12.5 % (11.6-15.6); WHITE BLOOD COUNT 6.4 K/mm3 (4.0-10.0)
[2020-09-30 16:33] LABS: EPI CELLS >36 /uL (0-25.1); HYALINE CASTS 1 /uL (0-3.1); PH,URINE 6.5 (5.0-8.0); URINE APPEARANCE CLOUDY; URINE BACTERIA 601 /uL (0-1359); URINE BILIRUBIN NEGATIVE (NEGATIVE); URINE COLOR YELLOW; URINE GLUCOSE (UA) NEGATIVE (NEGATIVE); URINE KETONE NEGATIVE (NEGATIVE); URINE LEUK ESTERASE 2+ (NEGATIVE); URINE NITRITE NEGATIVE (NEGATIVE); URINE PROTEIN NEGATIVE (NEGATIVE); URINE RBC 5 /uL (0-23.9); URINE UROBILINOGEN 0.2 mg/dL (0.2-1.0); URINE WBC 44 /uL (0-25.8)
[2020-09-30 16:44] LABS: POTASSIUM 4.1 mmol/L (3.5-5.1)
[2020-09-30 16:46] LABS: ALBUMIN 3.5 g/dl (3.4-5.0); CALCIUM 9.3 mg/dL (8.5-10.1)
[2020-09-30 16:47] LABS: BLOOD UREA NITROGEN 6.4 mg/dL (7-18)
[2020-09-30 16:50] LABS: CREATININE 0.7 mg/dL (0.55-1.3)
[2020-09-30 16:51] LABS: BILIRUBIN,TOTAL 0.2 mg/dL (0.2-1)
== END 2020-09-30 20:28 | disposition home or self-care (01) ==
LOC: JER 14:16
DX: Z3A.01 Less than 8 weeks gestation of pregnancy (principal)
CPT/HCPCS: 36415; 76817-TC; 80053; 81003; 84702; 85025; 85379; 87086; 99284-25

== ENCOUNTER 2021-04-13 15:58 | Emergency (ER) | payer OTHER ==
[2021-04-13 16:07] VITALS: TEMP 97.9; BMI 26.4
[2021-04-13] MEDS ORDERED: SODIUM CHLORIDE 1,000 ML IV STA (16:56)
[2021-04-13 17:16] LABS: HCG,QUALITATIVE URINE Positive
[2021-04-13 17:17] LABS: RBC 4.46 M/mm3 (3.60-5.2); WHITE BLOOD COUNT 5.9 K/mm3 (4.0-10.0)
[2021-04-13 17:18] LABS: BASO % 1.2 % (0-2.0); EOS % 1.6 % (0-4.5); HEMATOCRIT 40.7 % (32.4-45.2); HEMOGLOBIN 13.7 GM/dL (10.7-15.3); LYMPH % 38.5 % (8-40); MCH 30.8 pg (25.7-33.7); MCHC 33.7 g/dl (32.0-36.0); MEAN CELL VOLUME 91.3 fl (80-96); MEAN PLT VOLUME 7.9 fl (7.5-11.1); MONO % 9.9 % (3.8-10.2); NEUT % 48.8 % (42.8-82.8); PLATELET COUNT 435 10^3/uL (134-434); RDW 12.7 % (11.6-15.6)
[2021-04-13 17:20] LABS: EPI CELLS 13 /uL (0-25.1); HYALINE CASTS 0 /uL (0-3.1); URINE APPEARANCE CLEAR; URINE BACTERIA 106 /uL (0-1359); URINE BILIRUBIN NEGATIVE (NEGATIVE); URINE COLOR YELLOW; URINE GLUCOSE (UA) NEGATIVE (NEGATIVE); URINE KETONE NEGATIVE (NEGATIVE); URINE LEUK ESTERASE TRACE (NEGATIVE); URINE NITRITE NEGATIVE (NEGATIVE); URINE PROTEIN NEGATIVE (NEGATIVE); URINE RBC 2 /uL (0-23.9); URINE WBC 14 /uL (0-25.8)
[2021-04-13 17:30] LABS: ALBUMIN 3.6 g/dl (3.4-5.0)
[2021-04-13 17:31] LABS: BLOOD UREA NITROGEN 9.7 mg/dL (7-18)
[2021-04-13 17:34] LABS: CREATININE 0.7 mg/dL (0.55-1.3)
[2021-04-13 17:35] LABS: BILIRUBIN,TOTAL 0.3 mg/dL (0.2-1); TOT PROT 7.5 g/dl (6.4-8.2)
[2021-04-13 20:02] VITALS: BP 109/76; PULSE 80
== END 2021-04-13 20:02 | disposition home or self-care (01) ==
LOC: JER 15:58
DX: O26.891 Other specified pregnancy related conditions, first trimester (principal); R10.2 Pelvic and perineal pain; Z32.01 Encounter for pregnancy test, result positive; Z3A.01 Less than 8 weeks gestation of pregnancy
CPT/HCPCS: 36415; 76817-TC; 76856-TC; 80053; 81003; 83690; 84702; 84703; 85025; 87086; 87491; 87591; 99285-25

== ENCOUNTER 2021-05-03 23:22 | Emergency (ER) | payer OTHER ==
[2021-05-03 23:28] VITALS: BP 118/78; PULSE 74; TEMP 97; BMI 24.5
[2021-05-04] MEDS ORDERED: LACTATED RINGERS SOLUTION 1000 ML INFUS.BAG IV ONE (00:38)
[2021-05-04] MEDS ORDERED: ONDANSETRON 4 MG/2 ML VIAL IVPUSH ONE (00:38)
[2021-05-04] MEDS ORDERED: ACETAMINOPHEN 1000 MG/100 ML VIAL IVPB ONE (00:38)
[2021-05-04] MEDS ORDERED: FAMOTIDINE 20 MG/50 ML IVPB 20 MG/50 ML MG IVPB ONE ×2 (00:40→01:22)
[2021-05-04] MEDS ORDERED: ACETAMINOPHEN INJECTION 100 ML IVPB ONE (01:22)
[2021-05-04] MEDS ORDERED: ONDANSETRON 4 MG/2 ML VIAL ONE (01:22)
[2021-05-04 02:00] LABS: BASO % 1.5 % (0-2.0); EOS % 0.8 % (0-4.5); HEMATOCRIT 39.7 % (32.4-45.2); HEMOGLOBIN 13.9 GM/dL (10.7-15.3); LYMPH % 34.2 % (8-40); MCH 31.1 pg (25.7-33.7); MCHC 34.9 g/dl (32.0-36.0); MEAN CELL VOLUME 89.3 fl (80-96); MEAN PLT VOLUME 6.9 fl (7.5-11.1); NEUT % 56.5 % (42.8-82.8); PLATELET COUNT 456 10^3/uL (134-434); RBC 4.45 M/mm3 (3.60-5.2); RDW 12.6 % (11.6-15.6); WHITE BLOOD COUNT 10.4 K/mm3 (4.0-10.0)
[2021-05-04 02:05] LABS: EPI CELLS 16 /uL (0-25.1); HYALINE CASTS 0 /uL (0-3.1); PH,URINE 5.5 (5.0-8.0); URINE APPEARANCE CLEAR; URINE BACTERIA >9,000 /uL (0-1359); URINE BILIRUBIN NEGATIVE (NEGATIVE); URINE COLOR YELLOW; URINE GLUCOSE (UA) NEGATIVE (NEGATIVE); URINE KETONE NEGATIVE (NEGATIVE); URINE LEUK ESTERASE 1+ (NEGATIVE); URINE NITRITE NEGATIVE (NEGATIVE); URINE PROTEIN NEGATIVE (NEGATIVE); URINE RBC 3 /uL (0-23.9); URINE UROBILINOGEN 0.2 mg/dL (0.2-1.0); URINE WBC 30 /uL (0-25.8)
[2021-05-04 02:21] LABS: ALBUMIN 3.5 g/dl (3.4-5.0); CALCIUM 9.5 mg/dL (8.5-10.1)
[2021-05-04 02:22] LABS: BLOOD UREA NITROGEN 8.8 mg/dL (7-18)
[2021-05-04 02:25] LABS: CREATININE 0.6 mg/dL (0.55-1.3)
[2021-05-04 02:26] LABS: BILIRUBIN,TOTAL 0.2 mg/dL (0.2-1); TOT PROT 7.5 g/dl (6.4-8.2)
== END 2021-05-04 02:49 | disposition home or self-care (01) ==
LOC: JER 23:22
PROC: 3E033NZ Introduction of Analgesics, Hypnotics, Sedatives into Peripheral Vein, Percutaneous Approach (ICD-10-PCS; principal; 2021-05-04)
PROC: 3E033GC Introduction of Other Therapeutic Substance into Peripheral Vein, Percutaneous Approach (ICD-10-PCS; 2021-05-04)
PROC: 3E033GC Introduction of Other Therapeutic Substance into Peripheral Vein, Percutaneous Approach (ICD-10-PCS; 2021-05-04)
DX: N39.0 Urinary tract infection, site not specified (principal)
CPT/HCPCS: 36415; 76705-TC; 80053; 81003; 83690; 85025; 87086; 87186; 99285-25; C9803; J0131; U0003; U0005

== ENCOUNTER 2021-09-16 16:44 | Emergency (ER) | payer OTHER ==
[2021-09-16 16:48] VITALS: BP 111/72; PULSE 84; TEMP 97.8; BMI 26.4
[2021-09-16] MEDS ORDERED: DIPHTH,PERTUSS(ACELL),TET 0.5 ML DISP.SYRIN IM ONE ×2 (19:00→19:02)
== END 2021-09-16 19:27 | disposition home or self-care (01) ==
LOC: JERFT 16:44
PROC: 3E0234Z Introduction of Serum, Toxoid and Vaccine into Muscle, Percutaneous Approach (ICD-10-PCS; principal; 2021-09-16)
DX: S93.492A Sprain of other ligament of left ankle, initial encounter (principal); W19.XXXA Unspecified fall, initial encounter
CPT/HCPCS: 73610-TC-LT-FY; 73630-TC-LT; 90715; 99283-25

== ENCOUNTER 2022-08-15 00:07 | Emergency (ER) | payer OTHER ==
[2022-08-15 00:16] VITALS: BP 126/70; PULSE 62; RESP 16; TEMP 97.6; BMI 27.3
== END 2022-08-15 02:10 | disposition home or self-care (01) ==
LOC: JER 00:07
DX: N64.89 Other specified disorders of breast (principal)
CPT/HCPCS: 99282-25

== ENCOUNTER 2025-05-02 22:13 | Emergency (ER) | payer OTHER ==
[2025-05-02 22:21] VITALS: BP 115/75; PULSE 72; RESP 18; TEMP 97.3; BMI 25.4
[2025-05-02] MEDS ORDERED: ACETAMINOPHEN 500 MG TABLET (FP) ONE (23:00)
[2025-05-02] MEDS: ACETAMINOPHEN 500 MG TABLET (FP) PO ONE (23:03)
[2025-05-02 23:20] LABS: ABSOLUTE IMMATURE GRANULOCYTES 0.02 x10^3/uL (0.0-0.031); BASOPHILS # 0.07 x10^3/uL (0.01-0.08); EOSINOPHIL % 1.3 % (0.7-5.8); EOSINOPHILS # 0.11 x10^3/uL (0.04-0.36); MCHC 33.1 g/dl (32.2-35.5); MEAN CELL VOLUME 93.8 fl (79.4-94.8); MEAN PLT VOLUME 8.9 fl (9.4-12.3); MONOCYTE # 0.55 x10^3/uL (0.24-0.86); MONOCYTE % 6.4 % (4.7-12.5); RDW 11.5 % (12.1-16.5)
[2025-05-02 23:45] LABS: URINE APPEARANCE CLEAR; URINE BILIRUBIN NEGATIVE (NEGATIVE); URINE COLOR YELLOW; URINE GLUCOSE (UA) NEGATIVE (NEGATIVE); URINE KETONE NEGATIVE (NEGATIVE); URINE PROTEIN NEGATIVE (NEGATIVE); URINE UROBILINOGEN 0.2 mg/dL (0.2-1.0)
[2025-05-02 23:45] LABS: GLUCOSE,RANDOM 91.0 mg/dL (74-106); TOT PROT 6.8 g/dl (6.4-8.2)
[2025-05-02 23:46] LABS: URINE LEUK ESTERASE TRACE (NEGATIVE); URINE NITRITE NEGATIVE (NEGATIVE)
[2025-05-02 23:47] LABS: CO2 26.0 mmol/L (21-32)
[2025-05-02 23:48] LABS: ALK PHOS 51.0 U/L (40-150)
[2025-05-02 23:51] LABS: CREATININE 0.79 mg/dL (0.55-1.3); SGOT/AST 21.0 U/L (5-34); SGPT/ALT 18.0 U/L (0-55)
[2025-05-03 00:11] LABS: HCV DIAGNOSTIC IN-HOUSE W/RFLX NON-REACTIVE (NONREACTIVE)
[2025-05-03 00:12] LABS: HIV INTERPRETATION NEGATIVE (NEGATIVE)
== END 2025-05-03 00:10 | disposition home or self-care (01) ==
LOC: JER 22:13
DX: R10.A1 Flank pain, right side (principal); R10.31 Right lower quadrant pain; R10.32 Left lower quadrant pain
CPT/HCPCS: 36415; 80053; 81003; 83690; 84703; 85025; 86803; 87086; 87389; 99283-25